=== PATIENT | male | born 1965 | race Caucasian/White ===

== ENCOUNTER 2019-03-25 05:27 | Day surgery (SDC) | payer OTHER ==
[2019-03-25] MEDS ORDERED: CEFAZOLIN 2 GM/50 ML (PMX) 50 ML IVPB (05:30)
[2019-03-25] MEDS: SOD CHLORIDE 0.9% 1,000 ML IV (06:30)
[2019-03-25] MEDS ORDERED: PROPOFOL 20 ML (07:19)
[2019-03-25] MEDS ORDERED: ROCURONIUM 50 MG INJ (07:19)
[2019-03-25] MEDS ORDERED: LIDOCAINE 2% (SDV) 5 ML INJ (07:19)
[2019-03-25] MEDS ORDERED: CEFAZOLIN 1 GM INJ (07:48)
[2019-03-25] MEDS ORDERED: DEXAMETHASONE 4 MG/ML 5 ML INJ (07:48)
[2019-03-25] MEDS ORDERED: ONDANSETRON 4 MG INJ (07:49)
[2019-03-25] MEDS: POLYMYXIN/BACITRACIN 1L IRRIG (08:20)
[2019-03-25] MEDS: BUPIVACAINE 0.25%/EPI (SDV) 30 ML INJ (08:20)
[2019-03-25] MEDS ORDERED: GLYCOPYRROLATE 0.4 MG INJ (09:54)
[2019-03-25] MEDS ORDERED: NEOSTIGMINE 3 MG/3 ML SYRINGE (09:54)
[2019-03-25] MEDS ORDERED: FENTAnyl 50 MCG/ML VIAL IV ×3 (10:00)
[2019-03-25] MEDS ORDERED: HYDROmorphONE 1 MG/5 ML IV SYRINGE IV ×2 (10:00)
[2019-03-25] MEDS ORDERED: DIPHENHYDRAMINE 50 MG INJ IV (10:00)
[2019-03-25] MEDS ORDERED: ONDANSETRON 4 MG INJ IV ×2 (10:00)
[2019-03-25] MEDS ORDERED: OXYCODONE/ACETAMINOPHEN (5/325) TAB PO ×2 (10:00)
[2019-03-25] MEDS ORDERED: LABETALOL HCL 20MG INJ IV (10:00)
[2019-03-25] MEDS ORDERED: KETOROLAC 30 MG INJ IV ×2 (10:00)
[2019-03-25] MEDS ORDERED: MEPERIDINE 25 MG INJ IV (10:00)
[2019-03-25] MEDS ORDERED: hydrALAzine 20 MG INJ IV (10:00)
[2019-03-25] MEDS ORDERED: HYDROCODONE/APAP (5/325) TAB PO (10:00)
[2019-03-25] MEDS ORDERED: IBUPROFEN 600 MG TAB PO (10:00)
[2019-03-25] MEDS ORDERED: EPHEDrine 25 MG/5 ML SYG IV (10:00)
[2019-03-25] MEDS ORDERED: ALBUTEROL 0.083% (NEB) 2.5 MG/3 ML AMP HHN (10:00)
[2019-03-25] MEDS: morphine 2 MG INJ IV (10:25)
[2019-03-25] MEDS: HYDROmorphONE 1 MG/5 ML IV SYRINGE IV (10:40)
[2019-03-25] MEDS: METOCLOPRAMIDE 10 MG INJ IV (11:04)
[2019-03-25] MEDS: HYDROCODONE/APAP (5/325) TAB PO (12:24)
== END 2019-03-25 12:40 | disposition home or self-care (01) ==
LOC: SDS 05:27
DX: K40.90 Unilateral inguinal hernia, without obstruction or gangrene, not specified as recurrent (principal); K42.0 Umbilical hernia with obstruction, without gangrene; I10 Essential (primary) hypertension; E11.9 Type 2 diabetes mellitus without complications; Z79.84 Long term (current) use of oral hypoglycemic drugs
CPT/HCPCS: 49505; 82962; 88302